=== PATIENT | male | born 1990 | race Caucasian/White ===

== ENCOUNTER 2017-12-17 08:10 | Outpatient (RCR) | payer OTHER | END 2018-03-14 | disposition home or self-care (01) | LOC: WSOH | DX: S05.00XA Injury of conjunctiva and corneal abrasion without foreign body, unspecified eye, initial encounter (principal); Y93.H2 Activity, gardening and landscaping; Y92.214 College as the place of occurrence of the external cause; Y99.0 Civilian activity done for income or pay; Z87.891 Personal history of nicotine dependence ==